=== PATIENT | male | born 1950 | race African-American/Black ===

== ENCOUNTER 2016-10-31 17:02 | Emergency (ER) | payer BC ==
[~2016-10-31] VITALS: Ht 180.3 cm; Wt 108.9 kg
[2016-10-31] MEDS ORDERED: GLIP5TAB3 PO (17:53)
[2016-10-31] MEDS ORDERED: METF500T4 PO (17:53)
[2016-10-31] MEDS ORDERED: ASPI81TA50 PO (17:53)
[2016-10-31] MEDS ORDERED: PIOG15TA21 PO (17:53)
[2016-10-31] MEDS ORDERED: ATOR10TA PO (17:53)
[2016-10-31 18:06] LABS: BASO # 0.1 x10^3/uL (0.0-0.2); BASO % 1 % (0-3); EOS % 2 % (0-3); HEMATOCRIT 42.6 % (39.0-53.0); LYMPH % 25 % (24-48); MEAN CORPUSCULAR HEMOGLOBIN 30 pg (25-35); MEAN CORPUSCULAR HGB CONC 33 g/dL (31-37); MEAN CORPUSCULAR VOLUME 91 fL (79-100); MONO % 7 % (0-9); NEUT % 65 % (31-73); PLATELET COUNT 234 x10^3/uL (140-400); RED BLOOD COUNT 4.66 x10^6/uL (4.30-5.70); WHITE BLOOD COUNT 11.7 x10^3/uL (4.0-11.0)
[2016-10-31 18:20] LABS: CALCIUM 10.1 mg/dL (8.5-10.1); CREATININE 1.3 mg/dL (0.7-1.3); GFR 55.4; POTASSIUM 4.5 mmol/L (3.5-5.1)
[2016-10-31 18:25] LABS: ALBUMIN 3.9 g/dL (3.4-5.0); DIRECT BILIRUBIN 0.2 mg/dL (0.0-0.2); TOTAL BILIRUBIN 0.6 mg/dL (0.2-1.0); TOTAL PROTEIN 7.1 g/dL (6.4-8.2)
[2016-10-31] MEDS ORDERED: IV NORMAL SALINE 500ML BAG 500 ML IV ONE (18:30)
[2016-10-31 18:52] LABS: BILIRUBIN,URINE NEGATIVE (NEG); GLUCOSE,URINE NEGATIVE (NEG); NITRITE,URINE NEGATIVE (NEG); PH,URINE 6.5; PROTEIN,URINE NEGATIVE (NEG-TRACE)
--- NOTE | 2016-10-31 19:00 | PHYS DOC ---
Past Medical History Past Medical History: Diabetes-Type II, High Cholesterol Past Surgical History: No Surgical History Additional Information: 15 cigarettes daily Alcohol Use: Occasionally Drug Use: None Adult General Chief Complaint Chief Complaint: DIZZY/LIGHT HEADED HPI HPI 66-year-old male presenting the emergency department with lightheadedness. This started all of a sudden about an hour and a half ago. He feels fatigued and tired with malaise. It is worse with exertion. Improved with rest. He denies vertigo or the room spinning. Otherwise he denies chest pain shortness of breath fevers chills neck stiffness. Review of systems is negative for cough nausea vomiting diarrhea abdominal pain or chest pain. All other review of systems is negative unless otherwise noted in history of present illness. Review of Systems Review of Systems SEE ABOVE. Current Medications Current Medications Current Medications Medications (Trade) Dose Ordered Sig/Shawn Start Time Stop Time Status Last Admin Dose Admin Sodium Chloride 500 ml @ 500 mls/hr 1X ONCE 10/31/16 18:30 10/31/16 19:29 DC 10/31/16 18:47 500 MLS/HR Allergies Allergies Allergies Coded Allergies Type Severity Reaction Last Updated Verified No Known Drug Allergies 10/31/16 No Physical Exam Physical Exam Constitutional: Well developed, well nourished, no acute distress, non-toxic appearance. [] HENT: Normocephalic, atraumatic, bilateral external ears normal, oropharynx moist, no oral exudates, nose normal. Eyes: PERRLA, EOMI, conjunctiva normal, no discharge. [] Neck: Normal range of motion, no tenderness, supple, no stridor. [] Cardiovascular:Heart rate regular rhythm, no murmur Lungs & Thorax: Bilateral breath sounds clear to auscultation [] Abdomen: Bowel sounds normal, soft, no tenderness, no masses, no pulsatile masses. Skin: Warm, dry, no erythema, no rash. [] Back: No tenderness, no CVA tenderness. Extremities: No tenderness, no cyanosis, no clubbing, ROM intact, no edema. Neurologic: Mental status: Awake oriented and alert x3 Cranial nerves: Extraocular movements intact, eyebrows cecilio bilaterally smile symmetric, uvula elevation, shoulder shrug intact, tongue protrusion normal DTRs: 2+ Sensation: equal and normal in all extremities Strength: 5/5 in upper and lower extremities bilaterally Psychologic: Affect normal, judgement normal, mood normal. [] Current Patient Data Vital Signs Vital Signs Date Time Temp Pulse Resp B/P (MAP) Pulse Ox O2 Delivery O2 Flow Rate FiO2 10/31/16 19:17 74 15 135/65 (88) 99 Room Air 10/31/16 17:40 99.0 99.0 Lab Values Laboratory Tests Test 10/31/16 17:55 10/31/16 18:45 White Blood Count 11.7 x10^3/uL (4.0-11.0) H Red Blood Count 4.66 x10^6/uL (4.30-5.70) Hemoglobin 14.0 g/dL (13.0-17.5) Hematocrit 42.6 % (39.0-53.0) Mean Corpuscular Volume 91 fL (79-100) Mean Corpuscular Hemoglobin 30 pg (25-35) Mean Corpuscular Hemoglobin Concent 33 g/dL (31-37) Red Cell Distribution Width 15.0 % (11.5-14.5) H Platelet Count 234 x10^3/uL (140-400) Neutrophils (%) (Auto) 65 % (31-73) Lymphocytes (%) (Auto) 25 % (24-48) Monocytes (%) (Auto) 7 % (0-9) Eosinophils (%) (Auto) 2 % (0-3) Basophils (%) (Auto) 1 % (0-3) Neutrophils # (Auto) 7.5 x10^3uL (1.8-7.7) Lymphocytes # (Auto) 3.0 x10^3/uL (1.0-4.8) Monocytes # (Auto) 0.8 x10^3/uL (0.0-1.1) Eosinophils # (Auto) 0.3 x10^3/uL (0.0-0.7) Basophils # (Auto) 0.1 x10^3/uL (0.0-0.2) Sodium Level 143 mmol/L (136-145) Potassium Level 4.5 mmol/L (3.5-5.1) Chloride Level 105 mmol/L (98-107) Carbon Dioxide Level 28 mmol/L (21-32) Anion Gap 10 (6-14) Blood Urea Nitrogen 12 mg/dL (8-26) Creatinine 1.3 mg/dL (0.7-1.3) Estimated GFR (Cockcroft-Gault) 55.4 Glucose Level 133 mg/dL (70-99) H Calcium Level 10.1 mg/dL (8.5-10.1) Total Bilirubin 0.6 mg/dL (0.2-1.0) Direct Bilirubin 0.2 mg/dL (0.0-0.2) Aspartate Amino Transferase (AST) 17 U/L (15-37) Alanine Aminotransferase (ALT) 27 U/L (16-63) Alkaline Phosphatase 81 U/L (46-116) Troponin I Quantitative < 0.017 ng/mL (0.000-0.055) Total Protein 7.1 g/dL (6.4-8.2) Albumin 3.9 g/dL (3.4-5.0) Lipase 194 U/L (73-393) Urine Collection Type Unknown Urine Color Yellow Urine Clarity Clear Urine pH 6.5 Urine Specific [place] 1.020 Urine Protein Negative mg/dL (NEG-TRACE) Urine Glucose (UA) Negative mg/dL (NEG) Urine Ketones (Stick) Negative mg/dL (NEG) Urine Blood Negative (NEG) Urine Nitrite Negative (NEG) Urine Bilirubin Negative (NEG) Urine Urobilinogen Dipstick 1.0 mg/dL (0.2 mg/dL) Urine Leukocyte Esterase Trace (NEG) Urine RBC 3-5 /HPF (0-2) Urine WBC Occ /HPF (0-4) Urine Squamous Epithelial Cells Occ /LPF Urine Bacteria 0 /HPF (0-FEW) Urine Hyaline Casts Occasional /HPF Urine Mucus Marked /LPF Laboratory Tests 10/31/16 17:55 Laboratory Tests 10/31/16 17:55 EKG EKG [] Radiology/Procedures Radiology/Procedures [] Course & Med Decision Making Course & Med Decision Making Pertinent Labs and Imaging studies reviewed. (See chart for details) [] 66-year-old presenting to the emergency department with lightheadedness. EKG obtained which showed sinus rhythm with a regular rate. Not suggestive of ischemia. Chest x-ray obtained. Blood work sent. EKG unremarkable. Chest x-ray unremarkable. Blood work unremarkable. The patient was road tested in the emergency department he was able to walk without assistance. He was subsequent discharged home. The patient was then discharged home in stable condition to follow up with their primary care physician over the next 2-3 days. They were to return if their symptoms worsened or if they were concerned for any reason. [id number] discharge instructions and return precautions were given. Patient' s questions were answered to their satisfaction. Patient is comfortable plan. Dragon Disclaimer Dragon Disclaimer This electronic medical record was generated, in whole or in part, using a voice recognition dictation system. Departure Departure Impression: Primary Impression: Lightheadedness Disposition: 01 HOME, SELF-CARE Condition: STABLE Referrals: ELISEO CHAPARRO MD (PCP) Patient Instructions: Dizziness Additional Instructions: Thank you for allowing us to participate in your care today. Followup with your primary care physician in 3 days if your symptoms do not improve. If you do not have a primary care provider you can ask for a list of our primary care providers. Return to the emergency department you have any new or concerning findings. This should be evaluated by the primary care physician and any necessary consulting services for continued management within a few days after discharge. Return to emergency room if you have any new or concerning symptoms including but not limited to fever, chills, nausea, vomiting, intractable pain, any new rashes, chest pain, shortness of air, uncontrolled bleeding, difficulty breathing, and/or vision loss. BEE TERAN MD October 31, 2016 19:00
[2016-10-31 19:01] LABS: BACTERIA,URINE 0 /HPF (0-FEW); SQUAMOUS EPITHELIAL CELL,UR OCC /LPF; WBC,URINE OCC /HPF (0-4)
[2016-10-31 20:23] VITALS: BP 149/74
--- NOTE | 2016-11-01 07:22 | EKG ---
[facility] [address] [place] [address] Test Date: 2016-10-31 Test Time: 17:51:37 Pat Name: LAYA HERNANDEZ Department: Room: Gender: M Flanger: : 1950 Requested By: BEE TERAN Order Number: [id number] Reading MD: Yasmeen Meehan Measurements Intervals [place] Rate: 74 P: 56 NM: 194 QRS: -66 QRSD: 92 T: 25 QT: 364 QTc: 404 Interpretive Statements SINUS RHYTHM ABNORMAL LEFT AXIS DEVIATION RI6.01 Unconfirmed report No previous ECG available for comparison Electronically Signed On 11-03-2016 15:22:43 CDT by Yasmeen Meehan
--- NOTE | 2016-11-01 07:39 | RAD ---
Indication lightheaded. Dizzy. Suspect CVA. A single view of the chest was obtained. No prior imaging of the chest is available. The heart, pulmonary vessels and mediastinum appear normal. The lungs are clear. IMPRESSION: No acute or significant finding apparent in the chest
== END 2016-10-31 20:46 | disposition home or self-care (01) ==
LOC: ER 17:02
DX: R42 Dizziness and giddiness (principal); R53.83 Other fatigue; E78.00 Pure hypercholesterolemia, unspecified; E11.9 Type 2 diabetes mellitus without complications; F17.210 Nicotine dependence, cigarettes, uncomplicated
CPT/HCPCS: 36415; 71010; 80048; 80076; 81001; 83690; 84484; 85027; 87086; 93005; 96360; 99285; J7040

== ENCOUNTER → 2016-11-15 | Outpatient (CLI) | payer MEDICARE, BC ==
[2016-10-31 20:23] VITALS: BP 149/74
[~2016-11-15] MED LIST: ASPI81TA50 PO; ATOR10TA PO; GLIP5TAB3 PO; METF500T4 PO; PIOG15TA42 PO
--- NOTE | 2016-11-15 12:45 | CARD ---
APPROVED REPORT EXAM: Two-dimensional and M-mode echocardiogram with Doppler and color Doppler. Other Information Quality : GoodHR: 55bpm Rhythm : Bradycardia INDICATION Dizziness and Vertigo Murmur RISK FACTORS Hyperlipidemia Diabetes Previous smoker 2D DIMENSIONS RVDd3.3 (2.9-3.5cm)Left Atrium(2D)3.1 (1.6-4.0cm) IVSd1.2 (0.7-1.1cm)Aortic Root(2D)3.6 (2.0-3.7cm) LVDd4.6 (3.9-5.9cm)LVOT Diameter2.4 (1.8-2.4cm) PWd1.2 (0.7-1.1cm)LVDs3.1 (2.5-4.0cm) FS (%) 32.3 %SV59.3 ml LVEF(%)60.6 (>50%) Aortic Valve AoV Peak Randal.265.8cm/sAoV VTI58.4cm AO Peak GR.28.3mmHgLVOT Peak Randal.121.8cm/s AO Mean GR.15mmHgAVA (VMAX)2.09cm2 AI P 1/2 [id number] Mitral Valve MV E Etqtrtpm92.0cm/sMV E Peak Gr.6mmHg MV DECEL [id number] A Movzhkub013.3cm/s MV E Mean Gr.2mmHgE/A Ratio0.9 MV A [id number] Pulmonary Valve PV Peak Bvpxypvt05.3cm/s Pulmonary Vein S1 Qtnqumyu40.0cm/sD2 Fadzgpew58.1cm/s PVa [id number] LEFT VENTRICLE The left ventricle is normal size. There is mild concentric left ventricular hypertrophy. The left ve ntricular systolic function is normal and the ejection fraction is within normal range. The Ejection Fraction is 55-60%. There is normal LV segmental wall motion. Transmitral Doppler flow pattern is Gra de I-abnormal relaxation pattern. RIGHT VENTRICLE The right ventricle is normal size. There is normal right ventricular wall thickness. The right ventr icular systolic function is normal. ATRIA The left atrium size is normal. The right atrium size is normal. The interatrial septum is intact wit h no evidence for an atrial septal defect or patent foramen ovale as noted on 2-D or Doppler imaging. AORTIC VALVE The aortic valve is moderately sclerotic.Cannot rule out bicuspid valve. Not well visualized. Doppler and Color Flow revealed mild aortic regurgitation. There is no significant aortic valvular stenosis. MITRAL VALVE Mitral annular calcification is mild. The mitral valve leaflets are thickened. There is no evidence o f mitral valve prolapse. There is no mitral valve stenosis. Doppler and Color Flow revealed no mitral valve regurgitation noted. TRICUSPID VALVE Doppler and Color Flow revealed no tricuspid valve regurgitation noted. Unable to determine pulmonary artery pressure at exam time. PULMONIC VALVE Doppler and Color Flow revealed no pulmonic valvular regurgitation. There is no pulmonic valvular yara nosis. GREAT VESSELS The aortic root is normal in size. The ascending aorta is normal in size. The pulmonary artery is nor mal. The IVC is normal in size and collapses >50% with inspiration. PERICARDIAL EFFUSION There is no evidence of significant pericardial effusion. Critical Notification Critical Value: No <Conclusion> There is mild concentric left ventricular hypertrophy. The left ventricular systolic function is normal and the ejection fraction is within normal range. Th e Ejection Fraction is 55-60%. The aortic valve is moderately sclerotic. Cannot rule out bicuspid valve. Not well visualized. Doppler and Color Flow revealed mild aortic regurgitation.
== END | disposition home or self-care (01) ==
LOC: ECHO 08:46
PROVIDERS: ATTEND Internal Medicine
DX: I35.1 Nonrheumatic aortic (valve) insufficiency (principal); R01.1 Cardiac murmur, unspecified; R42 Dizziness and giddiness
CPT/HCPCS: 93306

== ENCOUNTER → 2021-10-01 | Day surgery (SDC) | payer MEDICARE, BC ==
[~2021-10-01] VITALS: Ht 180.3 cm; Wt 109.0 kg
[~2021-10-01] MED LIST changes: +IV RINGERS,LACTATED 1000ML 1,000 ML IV SCH; +LIDOCAINE 1% PF 2 ML VIAL. ID PRN; +METF500T16 PO; -METF500T4 PO; +PHENYLEPHRINE in 0.9% NACL PF 1 MG/10 ML SYRINGE. IV ONE; +PROPOFOL 10 MG/ML (20ML) VIAL. IV ONE
[2021-10-01 12:40] VITALS: BP 141/67
--- NOTE | 2021-10-01 13:45 | PDOC1 ---
History and Physical Date of Admission Date of Admission DATE: 10/01/21 TIME: 13:40 Identification/Chief Complaint Chief Complaint History of colon polyps. Source Source: Chart review, Patient History of Present Illness History of Present Illness 71 y/o male with h/o polyps. Timing of last surveillance unclear--2015? Earlier? No symptoms. No UGI complaints or history. Past Medical History Cardiovascular: Hyperlipidemia Renal/: Benign prostatic enlarg. Endocrine: Diabetes Past Surgical History Past Surgical History: No pertinent history Family History Family History: Other (Non-contributory) Social History Smoke: No ALCOHOL: none Drugs: None Current Medications Current Medications Current Medications Ringer's Solution 1,000 ml @ 125 mls/hr Q8H IV ; Start 09/29/21 at 10:45; Stop 09/29/21 at 22:44; Status DC Lidocaine HCl (Xylocaine-Mpf 1% 2ml Vial) 2 ml 1X PRN PRN ID IV START; Start 09/29/21 at 10:45; Stop 09/30/21 at 10:44; Status DC Ringer's Solution 1,000 ml @ 100 mls/hr Q10H IV Last administered on 10/01/21at 12:47; Start 10/01/21 at 12:45; Stop 10/02/21 at 12:44 Propofol (Diprivan) 200 mg STK-MED ONCE IV ; Start 10/01/21 at 13:36; Stop 10/01/21 at 13:37; Status DC Active Scripts Active Reported Aspir-Low (Aspirin) 81 Mg Tablet.dr 1 Tab PO DAILY Lipitor (Atorvastatin Calcium) 10 Mg Tablet Unknown Dose PO HS Glucotrol (Glipizide) 5 Mg Tablet Unknown Dose PO DAILY Actos (Pioglitazone Hcl) 15 Mg Tablet Unknown Dose PO DAILY Metformin Hcl 500 Mg Tablet 500 Mg PO BIDWMEALS Allergies Allergies: Coded Allergies: No Known Drug Allergies (Unverified , 10/01/21) ROS Review of System Otherwise negative. Physical Exam General: Alert, Oriented X3, Cooperative, No acute distress HEENT: Atraumatic Lungs: Clear to auscultation Heart: S1S2, RRR, no gallops, no murmurs Abdomen: Normal bowel sounds, Soft, No tenderness, No hepatosplenomegaly, No masses Rectal Exam: deferred (to procedure) Extremities: No cyanosis, No edema Skin: No significant lesion Neuro: Normal speech, Strength at 5/5 X4 ext, Normal tone, Sensation intact, Cranial nerves 3-12 NL, Reflexes 2+ Psych/Mental Status: Mental status NL, Mood NL Vitals Vitals Vital Signs Date Time Temp Pulse Resp B/P (MAP) Pulse Ox O2 Delivery O2 Flow Rate FiO2 10/01/21 12:40 97.9 70 20 98 97.9 VTE Prophylaxis Ordered VTE Prophylaxis Devices: No VTE Pharmacological Prophylaxi: No Assessment/Plan Assessment/Plan IMP: H/o polyps, due for surveillance. PLAN: colonoscopy. ELISEO HILTON MD Oct 01, 2021 13:45
--- NOTE | 2021-10-01 14:07 | PDOC4 ---
PROCEDURE Procedure Colonoscopy with biopsies Indication: h/o polyps Meds: per anesthesia Findings: AUDIE--normal. --'Scope advanced to cecum. Prep adequate. Mucosa normal. Diverticulosis sigmoid. 4mm polyp, splenic flexure, biopsied off. IH's on retroflex. Otherwise normal. Brian. well. IMP: polyp Diverticulosis IH's REC: await path. Resume meds, diet. F/u with me in 2 weeks. Repeat exam 5 years. ELISEO HILTON MD Oct 01, 2021 14:07
[2021-10-01 14:26] VITALS: BP 140/62
--- NOTE | 2021-10-04 18:08 | PATHOLOGY ---
[facility] Accession Number: [id number] . 01 Material submitted: . splenic flexure - SPLENIC FLEXURE POLYP BX . 01 Clinical history: . HX OF POLYPS COLONOSCOPY . 02 Diagnosis: Colon biopsies, splenic flexure polyp: - Tubular adenoma. (NADEGEM:paul; 10/04/2021) MBR 10/04/2021 1018 Local . 02 Comment: There is no high-grade dysplasia or evidence of malignancy. (NADEGEM:paul; 10/04/2021) . 02 Electronically signed: . Pedro Wilkerson MD, Pathologist NPI- [id number] . 01 Gross description: . The specimen is received in formalin, labeled "Jose A [place], splenic flexure polyp BX" and consists of 2 fisher irregular tissues measuring 0.3 x 0.2 x 0.2 cm and 0.5 x 0.3 x 0.1 cm. The specimen is filtered and submitted in toto in A1. ([facility]; 10/03/2021) DKA/DKA 10/03/2021 1629 Local . 02 Pathologist provided ICD-10: D12.3 . 02 CPT . 369705 Specimen Comment: A courtesy copy of this report has been sent to [phone] Specimen Comment: Report sent to Performed at: 01 [facility] [address] [facility] [address], [place] [id number] MD Timur Goodwin MD Phone: [phone] Performed at: 02 [facility] [address] [place], [place] [id number] MD Pedro Wilkerson MD Phone: [phone]
== END | disposition home or self-care (01) ==
LOC: ENDOS 12:21
PROVIDERS: ATTEND Internal Medicine Gastroenterology
DX: Z12.11 Encounter for screening for malignant neoplasm of colon (principal); K64.0 First degree hemorrhoids; D12.3 Benign neoplasm of transverse colon; K57.30 Diverticulosis of large intestine without perforation or abscess without bleeding; K63.89 Other specified diseases of intestine; K31.89 Other diseases of stomach and duodenum; E11.9 Type 2 diabetes mellitus without complications; E78.00 Pure hypercholesterolemia, unspecified; M19.90 Unspecified osteoarthritis, unspecified site; F17.210 Nicotine dependence, cigarettes, uncomplicated; Z86.010 Personal history of colon polyps; Z79.82 Long term (current) use of aspirin; Z79.84 Long term (current) use of oral hypoglycemic drugs; Z79.899 Other long term (current) drug therapy; Z98.890 Other specified postprocedural states; Z72.89 Other problems related to lifestyle
CPT/HCPCS: 45380; J2370; J2704